=== PATIENT | female | born 1995 | race American Indian/Alaskan Native ===

== ENCOUNTER 2019-03-17 10:53 | Emergency (ER) | payer SELFPAY ==
--- NOTE | 2019-03-17 11:14 | Emergency Department Report ---
Blank Doc - Documentation Documentation: This is a 23-year-old female that presents acute on chronic back pains. Patient stated was seen in [place] [facility] and had a spinal tap. Denies any urinary symptoms. Denies any injuries. This initial assessment/diagnostic orders/clinical plan/treatment(s) is/are subject to change based on patient's health status, clinical progression and re- assessment by fellow clinical providers in the ED. Further treatment and workup at subsequent clinical providers discretion. Patient/guardians urged not to elope from the ED as their condition may be serious if not clinically assessed and managed. Initial orders include: 1- Patient sent to [facility] for further evaluation and treatment 2- UA
[2019-03-17 11:38] LABS: Bilirubin,Urine NEG (Negative); Blood,Urine NEG (Negative); Color,Urine Yellow (Yellow); Mucus,Urine FEW /HPF; Protein,Urine <15 mg/dL mg/dL (Negative); Urobilinogen,Urine < 2.0 mg/dL (<2.0)
[2019-03-17 11:51] LABS: HCG Qualitative,Urine Negative (Negative)
[2019-03-17] MEDS ORDERED: TORADOL IM ONE (13:25)
--- NOTE | 2019-03-17 13:32 | Emergency Department Report ---
ED Back Pain/Injury HPI - General Chief Complaint: Back Pain/Injury Stated Complaint: SPINAL PAIN Time Seen by Provider: 03/17/19 11:09 Source: patient Limitations: No Limitations - History of Present Illness Initial Comments: This is a 23-year-old female that presents acute on chronic back pains. Patient stated was seen in [facility] and had a spinal tap. Denies any urinary symptoms. Denies any injuries. Patient reports that she works at [employer] and often lifting heavy objects. Patient reports she's taken ibuprofen for pain she reports has not helped. This acute episode of chronic back pain started about 3 days ago. MD Complaint: back pain Onset/Timin -: year(s) Similar Symptoms Previously: Yes Radiation: none Severity scale (0 -10): 8 Quality: sharp Consistency: intermittent Improves With: none Worsens With: movement Associated Symptoms: denies: numbness, difficulty urinating, incontinence, fever/chills - Related Data Previous Rx's Medication Instructions Recorded Last Taken Type Ibuprofen [Motrin 600 MG tab] 600 mg PO Q8H PRN #30 tablet 03/17/19 Unknown Rx Allergies Allergy/AdvReac Type Severity Reaction Status Date / Time No Known Allergies Allergy Unverified 03/17/19 11:02 ED Review of Systems ROS: Stated complaint: SPINAL PAIN Other details as noted in HPI Comment: All other systems reviewed and negative ED Past Medical Hx - Past Medical History Previous Medical History?: No - Surgical History Past Surgical History?: No - Social History Smoking Status: Current Some Day Smoker Substance Use Type: Alcohol - Medications Home Medications: Home Medications Medication Instructions Recorded Confirmed Last Taken Type Ibuprofen [Motrin 600 MG tab] 600 mg PO Q8H PRN #30 tablet 03/17/19 Unknown Rx ED Physical Exam - General Limitations: No Limitations General appearance: alert, in no apparent distress - Head Head exam: Present: atraumatic, normocephalic - Eye Eye exam: Present: normal appearance - ENT ENT exam: Present: mucous membranes moist - Back Exam Back exam: Present: full ROM, muscle spasm, vertebral tenderness - Neurological Exam Neurological exam: Present: alert, oriented X3 - Psychiatric Psychiatric exam: Present: normal affect, normal mood - Skin Skin exam: Present: warm, dry, intact, normal color. Absent: rash ED Course Vital Signs 03/17/19 11:05 Temperature 98.2 F Pulse Rate 68 Respiratory 17 Rate Blood Pressure 105/54 O2 Sat by Pulse 100 Oximetry ED Medical Decision Making - Medical Decision Making 23-year-old female comes in for acute on chronic back pain. Patient will be given Toradol injection. Discussed the patient she needs to follow-up with an orthopedic provider and a pain specialist. Critical care attestation.: If time is entered above; I have spent that time in minutes in the direct care of this critically ill patient, excluding procedure time. ED Disposition Clinical Impression: Back pain Qualifiers: Back pain location: back pain in unspecified location Chronicity: chronic Back pain laterality: midline Qualified Code(s): M54.9 - Dorsalgia, unspecified; G89.29 - Other chronic pain Disposition: - TO HOME OR SELFCARE Is pt being admited?: No Does the pt Need Aspirin: No Condition: Stable Instructions: Chronic Back Pain (ED) Additional Instructions: Take medication as prescribe. Follow up with a back specialist. Prescriptions: Ibuprofen [Motrin 600 MG tab] 600 mg PO Q8H PRN #30 tablet PRN Reason: Pain Referrals: CLEMENTINE MITCHELL MD [Primary Care Provider] - 3-5 Days [facility] [Provider Group] - 3-5 Days [facility] [Provider Group] - 3-5 Days
[2019-03-17 13:47] VITALS: BP 106/71
== END 2019-03-17 13:45 | disposition home or self-care (01) ==
LOC: ED 10:53
DX: M54.89 Other dorsalgia (principal); G89.29 Other chronic pain; F17.200 Nicotine dependence, unspecified, uncomplicated
CPT/HCPCS: 81001; 81025; 96372; 99283; J1885

== ENCOUNTER 2019-08-15 09:05 | Emergency (ER) | payer SELFPAY ==
[2019-08-15 09:39] VITALS: BP 125/63
[2019-08-15] MEDS ORDERED: IBUPROFEN 400 MG TAB PO ONE (11:18)
[2019-08-15] MEDS ORDERED: ACETAMINOPHEN 500 MG TAB PO ONE (11:18)
--- NOTE | 2019-08-15 11:23 | Emergency Department Report ---
ED ENT HPI - General Chief complaint: Sore Throat Stated complaint: SWOLLEN THROAT Time Seen by Provider: 08/15/19 10:36 Source: patient Mode of arrival: Ambulatory Limitations: No Limitations - History of Present Illness Initial comments: This is a pleasant 23-year-old female. This patient is not known to this provider previously. The patient states that she is not . She presents to the ER with a few days of sore throat complaint. The pain is throbbing and aching. It does not radiate anywhere. It increases with eating and drinking. It decreases with rest. There is no stridor or dysphonia. No fevers. Positive cough. Positive feeling of lymphadenopathy. MD complaint: sore throat -: Gradual, days(s) Severity: mild Quality: aching Consistency: intermittent Improves with: rest Worsens with: eating Associated Symptoms: sore throat - Related Data Previous Rx's Medication Instructions Recorded Last Taken Type Ibuprofen [Motrin 600 MG tab] 600 mg PO Q8H PRN #30 tablet 03/17/19 Unknown Rx Allergies Allergy/AdvReac Type Severity Reaction Status Date / Time No Known Allergies Allergy Unverified 03/17/19 11:02 ED Dental HPI - General Chief complaint: Sore Throat Stated complaint: SWOLLEN THROAT Time Seen by Provider: 08/15/19 10:36 Source: patient Mode of arrival: Ambulatory Limitations: No Limitations - Related Data Previous Rx's Medication Instructions Recorded Last Taken Type Ibuprofen [Motrin 600 MG tab] 600 mg PO Q8H PRN #30 tablet 03/17/19 Unknown Rx Allergies Allergy/AdvReac Type Severity Reaction Status Date / Time No Known Allergies Allergy Unverified 03/17/19 11:02 ED Review of Systems ROS: Stated complaint: SWOLLEN THROAT Other details as noted in HPI Constitutional: denies: fever ENT: throat pain, congestion. denies: ear pain, dental pain, hearing loss Respiratory: cough Cardiovascular: denies: syncope Gastrointestinal: denies: vomiting Musculoskeletal: denies: myalgia Neurological: denies: weakness Hematological/Lymphatic: denies: easy bleeding ED Past Medical Hx - Past Medical History Previous Medical History?: Yes Hx Asthma: Yes (bronchitis) - Surgical History Past Surgical History?: No - Social History Smoking Status: Never Smoker - Medications Home Medications: Home Medications Medication Instructions Recorded Confirmed Last Taken Type Ibuprofen [Motrin 600 MG tab] 600 mg PO Q8H PRN #30 tablet 03/17/19 Unknown Rx ED Physical Exam - General Limitations: No Limitations General appearance: alert, in no apparent distress - Head Head exam: Present: atraumatic, normocephalic - Eye Eye exam: Present: normal appearance, PERRL, EOMI. Absent: nystagmus - ENT ENT exam: Present: normal exam, normal orophraynx, mucous membranes moist, normal external ear exam, other (minimal pharyngeal erythema noted. No exudates noted. No tonsillar hypertrophy noted. The uvula is midline. Patient speaking in full sentences. There is no stridor or dysphonia. There is no elevation of the patient's the tongue. There is no tenderness with tracheal manipulation. The neck is supple.) - Neck Neck exam: Present: normal inspection, full ROM, lymphadenopathy. Absent: tenderness, meningismus - Respiratory Respiratory exam: Present: normal lung sounds bilaterally. Absent: respiratory distress - Cardiovascular Cardiovascular Exam: Present: regular rate, normal rhythm, normal heart sounds. Absent: bradycardia, tachycardia, irregular rhythm, systolic murmur, diastolic murmur, rubs, gallop - GI/Abdominal GI/Abdominal exam: Present: soft. Absent: distended, tenderness, guarding, rebound, rigid, pulsatile mass - Extremities Exam Extremities exam: Present: normal inspection, full ROM, other (2+ pulses noted in the bilateral upper. There is no long bone tenderness. Musculoskeletal compartments are soft. The pelvis is stable.). Absent: pedal edema, calf tenderness - Back Exam Back exam: Present: normal inspection, full ROM. Absent: tenderness, CVA tenderness (R), CVA tenderness (L), paraspinal tenderness, vertebral tenderness - Neurological Exam Neurological exam: Present: alert, normal gait, other (there is no facial droop. The tongue is midline. Extraocular movements are intact bilaterally. Patient speaking in full complete sentences. Shoulder shrug is intact bilaterally. Hearing is grossly intact bilaterally. Visual acuity intact to finger counting and color perception at a close distance. 5/5 strength 4 extremities. Sensation intact to light touch in 4 extremities.). Absent: motor sensory deficit - Psychiatric Psychiatric exam: Present: normal affect, normal mood - Skin Skin exam: Present: warm, dry, intact, normal color. Absent: rash ED Course Vital Signs 08/15/19 09:37 Temperature 98.1 F Pulse Rate 80 Respiratory 18 Rate Blood Pressure 125/63 O2 Sat by Pulse 100 Oximetry ED Medical Decision Making - Lab Data Vital Signs 08/15/19 09:37 Temperature 98.1 F Pulse Rate 80 Respiratory 18 Rate Blood Pressure 125/63 O2 Sat by Pulse 100 Oximetry Labs 08/15/19 Unknown Group A Strep Rapid Negative - Medical Decision Making Differential diagnosis, including not limited to: Pharyngitis, allergies, reflux Assessment and plan: 23-year-old female with primary complaint of pharyngitis and adenopathy. She is afebrile with reassuring vital signs. There is no stridor, the patient is protecting her airway, the neck is supple, strep screen is negative, patient tolerated liquid feeds, with no evidence of imminent airway compromise. Patient low risk by Centor score and does not appear to have an emergent medical condition at this time. She can be managed supportively and expectantly. Critical care attestation.: If time is entered above; I have spent that time in minutes in the direct care of this critically ill patient, excluding procedure time. ED Disposition Clinical Impression: Pharyngitis Disposition: DC-01 TO HOME OR SELFCARE Is pt being admited?: No Does the pt Need Aspirin: No Condition: Stable Additional Instructions: Cultures were sent today, and results will be available in the next 3-5 days. Please have a primary care doctor contact the medical records department to obtain culture results. Patient may take Tylenol, [id number], 325 mg by mouth, every 4-6 hours, alternating with Motrin [id number], 400 mg by mouth, with food, every 6 hours. Symptoms likely coming from cold/virus, and the symptoms are typically self resolving. Advance diet as tolerated, drink plenty of fluids, and follow-up with the primary care doctor within the next month. Return to the emergency room right away with projectile vomiting, change in mental status, confusion, inability to tolerate liquid feeds, new, worsened or different symptoms not present on initial emergency room evaluation. Referrals: [facility] [Provider Group] - as needed [facility] [Provider Group] - as needed Forms: Work/School Release Form(ED)
== END 2019-08-15 11:45 | disposition home or self-care (01) ==
LOC: ED 09:05
DX: J02.9 Acute pharyngitis, unspecified (principal); J45.909 Unspecified asthma, uncomplicated
CPT/HCPCS: 87116; 87430

== ENCOUNTER 2021-06-22 12:36 | Emergency (ER) | payer SELFPAY ==
[2021-06-22] MEDS ORDERED: PANTOPRAZOLE 40 MG INJ IV ONE (15:18)
[2021-06-22] MEDS ORDERED: SODIUM CHLORIDE 0.9% 1000 ML 1,000 ML IV ONE (15:18)
[2021-06-22] MEDS ORDERED: ONDANSETRON 4 MG/2 ML INJ IV ONE (15:18)
[2021-06-22] MEDS ORDERED: DICYCLOMINE 20 MG/2 ML INJ IM ONE (15:18)
[2021-06-22 15:54] LABS: Basophils % (Auto) 0.4 % (0.0-1.8); Eosinophils % (Auto) 0.4 % (0.0-4.3); Hematocrit 45.1 % (30.3-42.9); Hemoglobin 14.9 gm/dl (10.1-14.3); Mean Corpuscular HGB Conc 33 % (30-34); Mean Corpuscular Volume 93 fl (79-97); Monocytes # (Auto) 0.7 K/mm3 (0.0-0.8); Platelet Count 161 K/mm3 (140-440); Red Blood Count 4.88 M/mm3 (3.65-5.03)
[2021-06-22 16:18] LABS: Alanine Aminotransferase 13 units/L (7-56); Albumin 4.4 g/dL (3.9-5); Blood Urea Nitrogen 7 mg/dL (7-17); Calcium 9.3 mg/dL (8.4-10.2); Hemolysis Index 8
[2021-06-22 16:19] LABS: BUN/Creatinine Ratio 12
--- NOTE | 2021-06-22 16:29 | Emergency Department Report ---
ED General Adult HPI - General Chief complaint: Abdominal Pain Stated complaint: ABD PAIN Time Seen by Provider: 06/22/21 15:13 Source: patient Mode of arrival: Wheelchair Limitations: No Limitations - History of Present Illness Initial comments: Patient is a 25-year-old female presents emergency room with complaints of nausea and vomiting that reoccurred last night. She states that 4 days ago she was having nausea, vomiting and a burning sensation in her abdomen. She states that she went to [facility] at that time and had a CT scan of her abdomen which she reports was normal, she states that she was given a prescription for Zofran, Bentyl, Pepcid, omeprazole and states that she has upcoming appointment with GI on 06/28/21. Patient states that last night was the first time she ate and she decided to eat fried chicken and macaroni and cheese and then began having the vomiting again. She states she does not have any abdominal pain but has a burning sensation in her abdomen. She denies any diarrhea, fever, hematochezia, melena, hematemesis, urinary symptoms. No past medical history. Allergy to iodine. She denies any past abdominal surgical history. - Related Data Previous Rx's Medication Instructions Recorded Last Taken Type Ibuprofen [Motrin 600 MG tab] 600 mg PO Q8H PRN #30 tablet 03/17/19 Unknown Rx Promethazine HCl [Phenergan SUPPOS] 25 mg RC DAILY PRN #10 supp.rect 06/22/21 Unknown Rx Sucralfate [Carafate] 1 gm PO ACHS 7 Days #21 tablet 06/22/21 Unknown Rx Allergies Allergy/AdvReac Type Severity Reaction Status Date / Time iodine Allergy Rash Verified 06/22/21 12:45 ED Review of Systems ROS: Stated complaint: ABD PAIN Other details as noted in HPI Comment: All other systems reviewed and negative ED Past Medical Hx - Past Medical History Previous Medical History?: Yes Hx Asthma: Yes (bronchitis) - Social History Smoking Status: Former Smoker Substance Use Type: None - Medications Home Medications: Home Medications Medication Instructions Recorded Confirmed Last Taken Type Ibuprofen [Motrin 600 MG tab] 600 mg PO Q8H PRN #30 tablet 03/17/06/22/21 Unknown Rx Promethazine HCl [Phenergan SUPPOS] 25 mg RC DAILY PRN #10 supp.rect 06/22/21 Unknown Rx Sucralfate [Carafate] 1 gm PO ACHS 7 Days #21 tablet 06/22/21 Unknown Rx ED Physical Exam - General Limitations: No Limitations General appearance: alert, in no apparent distress - Head Head exam: Present: atraumatic, normocephalic - Eye Eye exam: Present: normal appearance - ENT ENT exam: Present: mucous membranes moist - Respiratory Respiratory exam: Present: normal lung sounds bilaterally. Absent: respiratory distress, wheezes, rales, rhonchi, stridor, chest wall tenderness, accessory muscle use, decreased breath sounds, prolonged expiratory - Cardiovascular Cardiovascular Exam: Present: regular rate, normal rhythm, normal heart sounds. Absent: systolic murmur, diastolic murmur, rubs, gallop - GI/Abdominal GI/Abdominal exam: Present: soft, normal bowel sounds. Absent: distended, tenderness, guarding, rebound, rigid - Neurological Exam Neurological exam: Present: alert, oriented X3 - Psychiatric Psychiatric exam: Present: normal affect, normal mood - Skin Skin exam: Present: warm, dry, intact ED Course Vital Signs 06/22/21 06/22/21 06/22/21 12:45 16:17 16:25 Temperature 98.0 F 98.1 F 98.4 F Pulse Rate 92 H 73 83 Respiratory 16 12 14 Rate Blood Pressure 111/63 Blood Pressure 120/84 119/83 [Right] O2 Sat by Pulse 98 99 99 Oximetry 06/22/21 18:18 Temperature 98.7 F Pulse Rate 56 L Respiratory 18 Rate Blood Pressure Blood Pressure 109/62 [Right] O2 Sat by Pulse 100 Oximetry ED Medical Decision Making - Lab Data Result diagrams: 06/22/21 15:33 06/22/21 15:33 Lab Results 06/22/21 06/22/21 06/22/21 Range/Units 15:33 15:33 15:33 WBC 7.7 (4.5-11.0) K/mm3 RBC 4.88 (3.65-5.03) M/mm3 Hgb 14.9 H (10.1-14.3) gm/dl Hct 45.1 H (30.3-42.9) % MCV 93 (79-97) fl MCH 31 (28-32) pg MCHC 33 (30-34) % RDW 13.0 L (13.2-15.2) % Plt Count 161 (140-440) K/mm3 Lymph % (Auto) 26.0 (13.4-35.0) % [place] % (Auto) 9.0 H (0.0-7.3) % Eos % (Auto) 0.4 (0.0-4.3) % Baso % (Auto) 0.4 (0.0-1.8) % Lymph # (Auto) 2.0 (1.2-5.4) K/mm3 [place] # (Auto) 0.7 (0.0-0.8) K/mm3 Eos # (Auto) 0.0 (0.0-0.4) K/mm3 Baso # (Auto) 0.0 (0.0-0.1) K/mm3 Seg Neutrophils % 64.2 (40.0-70.0) % Seg Neutrophils # 5.0 (1.8-7.7) K/mm3 Sodium 143 (137-145) mmol/L Potassium 3.6 (3.6-5.0) mmol/L Chloride 107.0 (98-107) mmol/L Carbon Dioxide 21 L (22-30) mmol/L Anion Gap 19 mmol/L BUN 7 (7-17) mg/dL Creatinine 0.6 (0.6-1.2) mg/dL Estimated GFR > 60 ml/min BUN/Creatinine Ratio 12 % Glucose 86 (65-100) mg/dL Calcium 9.3 (8.4-10.2) mg/dL Total Bilirubin 0.80 (0.1-1.2) mg/dL AST 14 (5-40) units/L ALT 13 (7-56) units/L Alkaline Phosphatase 60 (35-129) units/L Total Protein 7.4 (6.3-8.2) g/dL Albumin 4.4 (3.9-5) g/dL Albumin/Globulin Ratio 1.5 % Lipase 27 (13-60) units/L HCG, Qual Negative (Negative) Urine Color (Yellow) Urine Turbidity (Clear) Urine pH (5.0-7.0) Ur Specific [place] (1.003-1.030) Urine Protein (Negative) mg/dL Urine Glucose (UA) (Negative) mg/dL Urine Ketones (Negative) mg/dL Urine Blood (Negative) Urine Nitrite (Negative) Urine Bilirubin (Negative) Urine Urobilinogen (<2.0) mg/dL Ur Leukocyte Esterase (Negative) Urine WBC (Auto) (0.0-6.0) /HPF Urine RBC (Auto) (0.0-6.0) /HPF U Epithel Cells (Auto) (0-13.0) /HPF Urine Mucus /HPF 06/22/21 Range/Units Unknown WBC (4.5-11.0) K/mm3 RBC (3.65-5.03) M/mm3 Hgb (10.1-14.3) gm/dl Hct (30.3-42.9) % MCV (79-97) fl MCH (28-32) pg MCHC (30-34) % RDW (13.2-15.2) % Plt Count (140-440) K/mm3 Lymph % (Auto) (13.4-35.0) % [place] % (Auto) (0.0-7.3) % Eos % (Auto) (0.0-4.3) % Baso % (Auto) (0.0-1.8) % Lymph # (Auto) (1.2-5.4) K/mm3 [place] # (Auto) (0.0-0.8) K/mm3 Eos # (Auto) (0.0-0.4) K/mm3 Baso # (Auto) (0.0-0.1) K/mm3 Seg Neutrophils % (40.0-70.0) % Seg Neutrophils # (1.8-7.7) K/mm3 Sodium (137-145) mmol/L Potassium (3.6-5.0) mmol/L Chloride (98-107) mmol/L Carbon Dioxide (22-30) mmol/L Anion Gap mmol/L BUN (7-17) mg/dL Creatinine (0.6-1.2) mg/dL Estimated GFR ml/min BUN/Creatinine Ratio % Glucose (65-100) mg/dL Calcium (8.4-10.2) mg/dL Total Bilirubin (0.1-1.2) mg/dL AST (5-40) units/L ALT (7-56) units/L Alkaline Phosphatase (35-129) units/L Total Protein (6.3-8.2) g/dL Albumin (3.9-5) g/dL Albumin/Globulin Ratio % Lipase (13-60) units/L HCG, Qual (Negative) Urine Color Yellow (Yellow) Urine Turbidity Slightly-cloudy (Clear) Urine pH 5.0 (5.0-7.0) Ur Specific [place] 1.023 (1.003-1.030) Urine Protein 30 mg/dl (Negative) mg/dL Urine Glucose (UA) Neg (Negative) mg/dL Urine Ketones 20 (Negative) mg/dL Urine Blood Neg (Negative) Urine Nitrite Neg (Negative) Urine Bilirubin Neg (Negative) Urine Urobilinogen < 2.0 (<2.0) mg/dL Ur Leukocyte Esterase Neg (Negative) Urine WBC (Auto) 5.0 (0.0-6.0) /HPF Urine RBC (Auto) 2.0 (0.0-6.0) /HPF U Epithel Cells (Auto) 13.0 (0-13.0) /HPF Urine Mucus 3+ /HPF - Medical Decision Making Patient is a 25-year-old female presents emergency room with complaints of nausea and vomiting that reoccurred last night. She states that 4 days ago she was having nausea, vomiting and a burning sensation in her abdomen. She states that she went to [facility] at that time and had a CT scan of her abdomen which she reports was normal, she states that she was given a prescription for Zofran, Bentyl, Pepcid, omeprazole and states that she has upcoming appointment with GI on 06/28/21. Patient states that last night was the first time she ate a nd she decided to eat fried chicken and macaroni and cheese and then began having the vomiting again. She states she does not have any abdominal pain but has a burning sensation in her abdomen. She denies any diarrhea, fever, hematochezia, melena, hematemesis, urinary symptoms. No past medical history. Allergy to iodine. She denies any past abdominal surgical history. Vitals are normal. No abdominal tenderness on exam, no guarding, no rebound, no rigidity, no masses, no peritoneal signs. Labs are normal. UA without evidence of UTI. Patient given medications while in the emergency department was able to tolerate p.o. intake without difficulty and had no further episodes of vomiting. Symptoms could be related to GERD versus gastritis versus PUD. Discussed dietary modifications with patient. Patient has no abdominal tenderness on exam and no leukocytosis she is afebrile. Patient had a recent normal CT abdomen pelvis at outside hospital per patient. Patient given prescription for medications. Discussed the importance of outpatient follow-up for reexamination. Advised patient Please continue taking medication you are prescribed during your last emergency room visit. Please take new medication as prescribed. Increase your fluid intake. Eat a bland liquid diet and slowly advance her diet as tolerated. Please follow the diet for acid reflux. Follow- up with your primary care doctor. Follow-up with a GI doctor. Return to emergency room for any new or worsening symptoms. Critical care attestation.: If time is entered above; I have spent that time in minutes in the direct care of this critically ill patient, excluding procedure time. ED Disposition Clinical Impression: Abdominal discomfort Nausea & vomiting Qualifiers: Vomiting type: unspecified Vomiting Intractability: non-intractable Qualified Code(s): R11.2 - Nausea with vomiting, unspecified Disposition: 01 HOME / SELF CARE / HOMELESS Is pt being admited?: No Does the pt Need Aspirin: No Condition: Stable Instructions: Peptic Ulcer, [id number], Food Choices for Gastroesophageal Reflux Disease, Adult, Abdominal Pain (ED) Additional Instructions: Please continue taking medication you are prescribed during your last emergency room visit. Please take new medication as prescribed. Increase your fluid intake. Eat a bland liquid diet and slowly advance her diet as tolerated. Please follow the diet for acid reflux. Follow-up with your primary care doctor. Follow-up with a GI doctor. Return to emergency room for any new or worsening symptoms. Prescriptions: Sucralfate [Carafate] 1 gm PO ACHS 7 Days #21 tablet Promethazine HCl [Phenergan SUPPOS] 25 mg RC DAILY PRN #10 supp.rect PRN Reason: nausea/vomiting Referrals: HE MONTGOMERY MD [Staff Physician] - 3-5 Days [facility] [Provider Group] - 3-5 Days your, GI doctor [Other] - 3-5 Days Time of Disposition: 17:41 Print Language: FRISIAN
[2021-06-22 17:20] LABS: Bilirubin,Urine NEG (Negative); Blood,Urine NEG (Negative); Color,Urine Yellow (Yellow); Mucus,Urine 3+ /HPF; Urobilinogen,Urine < 2.0 mg/dL (<2.0)
[2021-06-22 18:19] VITALS: BP 109/62
== END 2021-06-22 18:19 | disposition home or self-care (01) ==
LOC: ED 12:36
DX: R11.2 Nausea with vomiting, unspecified (principal); R10.9 Unspecified abdominal pain; J45.909 Unspecified asthma, uncomplicated; Z87.891 Personal history of nicotine dependence; Z91.041 Radiographic dye allergy status
CPT/HCPCS: 36415; 80053; 81001; 83690; 84703; 85025; 96361; 96372; 96374; 96375; 99284; C9113; J0500; J2405; J7030